=== PATIENT | female | born 1990 | race Caucasian/White ===

== ENCOUNTER → 2021-01-16 | Outpatient (CLI) | payer OTHER | LOC: LAB 10:55 | PROVIDERS: ATTEND Internal Medicine Cardiovascular Disease | DX: Z20.822 Contact with and (suspected) exposure to COVID-19 (principal) | CPT/HCPCS: U0003; U0005 ==

== ENCOUNTER → 2021-01-21 | Outpatient (CLI) | payer OTHER | LOC: LAB 07:58 | PROVIDERS: ATTEND Internal Medicine Cardiovascular Disease | DX: U07.1 COVID-19 (principal) | CPT/HCPCS: U0005 ==